=== PATIENT | female | born 1985 | race Caucasian/White ===

== ENCOUNTER 2020-01-19 01:25 | Emergency (ER) | payer OTHER ==
[~2020-01-19] VITALS: Ht 170.2 cm; Wt 134.3 kg
[~2020-01-19 01:25] MED LIST: ALEVE220 MG PO; AMOXICILLIN875 MG PO; COUMADIN 5 MG TA5 M1 PO; ENOXAPARIN100 MG/11 SUBQ; IBUPROFEN 800800 MG PO; NAPROSYN250 MG PO; NOHOMEMEDICATIONS; THERAFLU COLD1 EAC1 PO; TRAMADOL 50 MG50 MG PO; ZANTAC 150MG T150 MG PO
[2020-01-19] MEDS ORDERED: ESOMEPRAZOLE MA20 MG PO (01:33)
[2020-01-19 02:17] LABS: BASOPHILS 0.6 % (0.0-2.0); EOSINOPHILS 5.9 % (0.0-3.0); HEMATOCRIT 36.3 % (37.0-47.0); HEMOGLOBIN 11.4 gm/dL (12.0-15.0); LYMPHOCYTES 13.2 % (24.0-44.0); MCH 23.2 pg (26.0-34.0); MCHC 31.4 g/dL (28.0-37.0); MONOCYTES 5.4 % (1.0-8.0); PLATELET COUNT 397 thou/uL (150-400); POLYS 74.9 % (36.0-66.0); RBC 4.91 mil/uL (4.20-5.00); WBC 5.4 thou/uL (4.0-11.0)
[2020-01-19 02:25] LABS: ANION GAP 8 mmol/L (7-16); BUN 14 mg/dL (7-18); CALCIUM 8.7 mg/dL (8.5-10.1); CHLORIDE 100 mmol/L (98-107); CO2 30 mmol/L (21-32); GLUCOSE 101 mg/dL (74-106); POTASSIUM 3.7 mmol/L (3.5-5.1); SODIUM 138 mmol/L (136-145)
[2020-01-19 02:29] LABS: APTT 30.9 Seconds (24.5-32.8); PROTIME 10.3 Seconds (9.3-11.4)
[2020-01-19 02:31] LABS: ALBUMIN 3.9 g/dL (3.4-5.0); SGOT 27 U/L (15-37); SGPT 24 U/L (30-65); TOTAL BILIRUBIN 0.3 mg/dL (<0.1-1.0)
[2020-01-19 02:32] LABS: DIRECT BILIRUBIN < 0.1 mg/dL (<0.1-0.2)
[2020-01-19] MEDS ORDERED: LASIX 20 MG TAB20 MG PO (03:34)
[2020-01-19 03:47] VITALS: BP 125/92
== END 2020-01-19 03:48 | disposition home or self-care (01) ==
LOC: ER 01:25
PROVIDERS: Emergency Medicine
DX: R60.0 Localized edema (principal); R60.1 Generalized edema; R06.00 Dyspnea, unspecified; R06.2 Wheezing; K21.9 Gastro-esophageal reflux disease without esophagitis; Z86.718 Personal history of other venous thrombosis and embolism; Z86.711 Personal history of pulmonary embolism; Z85.42 Personal history of malignant neoplasm of other parts of uterus; Z79.899 Other long term (current) drug therapy; Z88.0 Allergy status to penicillin

== ENCOUNTER → 2021-10-12 | Outpatient (CLI) | payer OTHER ==
[~2021-10-12] MED LIST changes: +ESOMEPRAZOLE MA20 MG PO; +LASIX 20 MG TAB20 MG PO
[2021-10-12 17:01] LABS: ABSOLUTE NEUTROPHILS 4.4 thou/uL (1.4-8.2); BASOPHILS 0.2 % (0.0-2.0); HEMATOCRIT 29.5 % (37.0-47.0); HEMOGLOBIN 9.4 gm/dL (12.0-15.0); LYMPHOCYTES 10.5 % (24.0-44.0); MCH 25.9 pg (26.0-34.0); MCHC 31.8 g/dL (28.0-37.0); MCV 81.6 fL (80.0-100.0); MONOCYTES 4.9 % (1.0-8.0); PLATELET COUNT 211 thou/uL (150-400); POLYS 80.4 % (36.0-66.0); RBC 3.61 mil/uL (4.20-5.00); RDW 19.2 % (10.5-14.5); WBC 5.5 thou/uL (4.0-11.0)
[2021-10-12 17:22] LABS: ALBUMIN 3.2 g/dL (3.4-5.0); CALCIUM 8.6 mg/dL (8.5-10.1); CREATININE 0.9 mg/dL (0.6-1.0); TOTAL BILIRUBIN 0.2 mg/dL (0.2-1.0); TOTAL PROTEIN 6.7 g/dL (6.4-8.2)
[2021-10-12 18:13] LABS: ANISOCYTOSIS 1+
== END ==
LOC: LAB 16:50
PROVIDERS: ATTEND Internal Medicine
DX: C56.9 Malignant neoplasm of unspecified ovary (principal)